=== PATIENT | female | born 1960 | race Caucasian/White ===

== ENCOUNTER 2024-09-16 11:28 | Outpatient (CLI) | payer OTHER, SELFPAY ==
--- NOTE | ~2024-09-16 | DEXA_ITS ---
Bone Density Report Name: DEVONTE JOSE Age: 63 Sex: Female Ethnicity: White Date of : 1960 Indication: postmenopausal; screening for osteoporosis; height loss; Referring Provider: VINOD PATE Study: Bone densitometry was performed. Exam Date: September 16, 2024 Accession number: [id number] Bone Density: Region BMD T-score Z-score Classification AP Spine(L1-L4) 1.020 -0.2 1.3 Normal Femoral Neck (Left) 0.784 -0.6 0.8 Normal Total Hip (Left) 0.928 -0.1 0.9 Normal Femoral Neck (Right) 0.825 -0.2 1.2 Normal Total Hip (Right) 0.958 0.1 1.2 Normal Total Hip Mean 0.943 0.0 1.1 Normal World Health Organization criteria for BMD impression classify patients as: Normal (T-score at or above -1.0), Osteopenia (T-score between -1.0 and -2.5), or Osteoporosis (T-score at or below -2.5). 10-year Fracture Risk: FRAX not reported because: All T-scores for Spine Total, Hip Total, Femoral Neck at or above -1.0 Clinical Information Provided by Patient: Has used the following medications: HRT (i.e. estrogen/hormone therapy), Vitamin D Patient maximum height was 67 Menopause Age: 59 Drinks caffeinated beverages Onset of menses at age 16 Number of children 0 Impression: The patient has normal bone mass. Discussion: BONE DENSITY IS ABOVE THE MINIMUM DESIRABLE LEVEL AT ALL SKELETAL SITES TESTED. This patient?s bone mineral density is above the minimum desirable level (T-score -1.0 or better) at all sites measured. The patient should follow a healthful lifestyle (good nutrition with adequate calcium and vitamin D, and appropriate weight-bearing exercise). Follow-Up: Consider repeating this study in 5 years or sooner if there is some new clinical indication. Reported by: SUMANTH on 09/16/2024 11:52:00 AM. Reviewed, dictated and finalized at location A.
== END 2024-09-16 11:29 | disposition home or self-care (01) ==
LOC: MICIMG 11:31
PROVIDERS: PCP Obstetrics & Gynecology Gynecology; Visit Provider Obstetrics & Gynecology Gynecology
DX: Z13.820 Encounter for screening for osteoporosis (principal); Z78.0 Asymptomatic menopausal state
CPT/HCPCS: 77080

== ENCOUNTER 2024-10-15 14:20 | Outpatient (CLI) | payer OTHER, SELFPAY ==
--- NOTE | ~2024-10-15 | US_ITS ---
EXAMINATION: US transvaginal INDICATION: Postmenopausal bleeding Comparison:No prior studies for comparison. TECHNIQUE: Multiple transabdominal and endovaginal sonographic images of the pelvis performed. FINDINGS: The uterus measures 5.1 x 2.7 x 3.7 cm. There is multiple small uterine fibroids largest measuring 11 mm on the right. The endometrial complex measures 4 mm. The ovaries are not visualized. There is no free fluid in the pelvis. There are no abnormal masses seen on either side. IMPRESSION: 1. Multiple small uterine fibroids, largest measuring 11 mm. Reviewed, dictated and finalized at location O.
== END 2024-10-15 14:21 | disposition home or self-care (01) ==
LOC: MICIMG 14:21
PROVIDERS: PCP Obstetrics & Gynecology Gynecology; Visit Provider Obstetrics & Gynecology Gynecology
DX: N95.0 Postmenopausal bleeding (principal); D25.9 Leiomyoma of uterus, unspecified
CPT/HCPCS: 76830

== ENCOUNTER 2024-11-08 03:21 | Day surgery (SDC) | payer OTHER, SELFPAY ==
--- OUTSIDE RECORDS SUMMARY | 2013-07-15 | XMS_ITS | Encounter Summary ---
Author Organization [facility] Healthcare Address [address] [place] [address] Care Team Providers Care Warp Tier Name Role Phone Unavailable Primary Care Provider Unavailabl e Reason for Visit * Diagnostic Imaging (Routine) - Closed Specialty Diagnoses / Procedures Referred By Contac t Referred To Contact Procedures Breast Imaging Screening Outside Reference Referral, Self Referral ID Status Reason Start Date Expiration Date Visits Re quested Visits Authorized [id number] Closed 09/20/2021 10/20/2022 1 1 Encounter Details Date Type Department Care Team (Late st Contact Info) Description 07/15/2013 Hospital Encounter [facility] [address] [place] [id number] Social History Tobacco Use Types Packs/Day Years Used Date Smoking Tobacco: Never Assessed Personal Safety Answer Date Recorded Getting School Help Needed Not on file 02/28 Comments Unknown Sex and Gender Information Value Date Recorded Sex Assigned at Not on file 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 Gender Identity Not on file Sexual Orientation Not on file documented as of this encounter Plan of Treatment Not on file documented as of this encounter Procedures Procedure Name Priority Date/Time Associated Diagnosis Comments BREAST IMAGING MG SCREENING OUTSIDE REFERENCE Routine 07/15/2013 12:00 AM CDT documented in this encounter Results * Breast Imaging Screening Outside Reference (07/15/2013 12:00 AM CDT) Impressions RAD_MAMMO_[facility] - 09/20/2021 12:40 PM CDT These images are for Reference purposes only and have not been reviewed by [facility]iology. There will be no report generated by a [facility] Radiologist. Narrative RAD_MAMMO_[facility] - 09/20/2021 12:40 PM CDT EXAMINATION: Images For Reference Purposes Only us Self Referral IMG MAMMO PROCEDURES Final Resul t RAD_MAMMO_[facility] documented in this encounter Visit Diagnoses Not on filedocumented in this encounter
--- OUTSIDE RECORDS SUMMARY | 2014-02-01 01:00 | XMS_ITS | Encounter Summary ---
Author Organization [facility] Healthcare Address [address] [place] [address] Care Team Providers Care Superintendent Drilling And Production Name Role Phone Unavailable Primary Care Provider Unavailabl e Reason for Visit * Diagnostic Imaging (Routine) - Closed Specialty Diagnoses / Procedures Referred By Contac t Referred To Contact Procedures Breast Imaging Diagnostic Outside Reference Referral, Self Referral ID Status Reason Start Date Expiration Date Visits Re quested Visits Authorized [id number] Closed 09/20/2021 10/20/2022 1 1 Encounter Details Date Type Department Care Team (Late st Contact Info) Description 02/01/2014 Hospital Encounter [facility] [address] [place] [phone] Social History Tobacco Use Types Packs/Day Years Used Date Smoking Tobacco: Never Assessed Personal Safety Answer Date Recorded Getting School Help Needed Not on file 02/28 Comments Unknown Sex and Gender Information Value Date Recorded Sex Assigned at Not on file 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 Gender Identity Not on file Sexual Orientation Not on file documented as of this encounter Plan of Treatment Not on file documented as of this encounter Procedures Procedure Name Priority Date/Time Associated Diagnosis Comments BREAST IMAGING MG DIAGNOSTIC OUTSIDE REFERENCE Routine 02/01/2014 12:00 AM PUMP SERVICER SUPERVISOR documented in this encounter Results * Breast Imaging Diagnostic Outside Reference (02/01/2014 12:00 AM PUMP SERVICER SUPERVISOR) Impressions RAD[facility]MAMMO_[facility] - 09/20/2021 12:39 PM CDT These images are for Reference purposes only and have not been reviewed by [facility]iology. There will be no report generated by a [facility] Radiologist. Narrative RAD_MAMMO_[facility] - 09/20/2021 12:39 PM CDT EXAMINATION: Images For Reference Purposes Only us Self Referral IMG MAMMO PROCEDURES Final Resul t RAD_MAMMO_[facility] documented in this encounter Visit Diagnoses Not on filedocumented in this encounter
--- OUTSIDE RECORDS SUMMARY | 2015-08-10 | XMS_ITS | Encounter Summary ---
Author Organization [facility] Healthcare Address [address] [place] [address] Care Team Providers Care Solutions Sales Executive Name Role Phone Unavailable Primary Care Provider Unavailabl e Reason for Visit * Diagnostic Imaging (Routine) - Closed Specialty Diagnoses / Procedures Referred By Contac t Referred To Contact Procedures Breast Imaging Screening Outside Reference Referral, Self Referral ID Status Reason Start Date Expiration Date Visits Re quested Visits Authorized [id number] Closed 09/20/2021 10/20/2022 1 1 Encounter Details Date Type Department Care Team (Late st Contact Info) Description 08/10/2015 Hospital Encounter [facility]) [address] [place] [phone] Social History Tobacco Use Types Packs/Day Years Used Date Smoking Tobacco: Never Assessed Personal Safety Answer Date Recorded Getting School Help Needed Not on file 02/28 Comments Unknown Sex and Gender Information Value Date Recorded Sex Assigned at Not on file 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 There will be no report generated by a [facility] Radiologist. Narrative RAD_MAMMO_[facility] - 09/20/2021 12:39 PM CDT EXAMINATION: Images For Reference Purposes Only us Self Referral IMG MAMMO PROCEDURES Final Resul t [facility]_MAMMO[facility] documented in this encounter Visit Diagnoses Not on filedocumented in this encounter
--- OUTSIDE RECORDS SUMMARY | 2020-07-04 | XMS_ITS | Encounter Summary ---
Author Organization [facility] Healthcare Address [address] [place] [address] Care Team Providers Care Intervention Analyst Name Role Phone Unavailable Primary Care Provider Unavailabl e Reason for Visit * Diagnostic Imaging (Routine) - Closed Specialty Diagnoses / Procedures Referred By Yon upton Referred To Contact Diagnoses Screening mammogram, encounter for Procedures Breast Imaging Screening Outside Reference Referral, Self Referral ID Status Reason Start Date Expiration Date Visits Re quested Visits Authorized [id number] Closed 09/20/2021 10/20/2022 1 1 Encounter Details Date Type Department Care Team (Late st Contact Info) Description 07/04/2020 Hospital Encounter [facility] [address] [place] [id number] Social History Tobacco Use Types Packs/Day Years Used Date Smoking Tobacco: Never Assessed Personal Safety Answer Date Recorded Getting School Help Needed Not on file 02/28 Comments Unknown Sex and Gender Information Value Date Recorded Sex Assigned at Not on file 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 Gender Identity Not on file Sexual Orientation Not on file documented as of this encounter Plan of Treatment Not on file documented as of this encounter Procedures Procedure Name Priority Date/Time Associated Diagnosis Comments BREAST IMAGING MG SCREENING OUTSIDE REFERENCE Schedule Routine, Read Routine (OP Routine) 07/04/2020 12:00 AM CDT Screening mammogram, encounter for documented in this encounter Results * Breast Imaging Screening Outside Reference (07/04/2020 12:00 AM CDT) Impressions RAD_MAMMO_[facility] - 09/20/2021 12:39 PM CDT These images are for Reference purposes only and have not been reviewed by [facility] Radiology. There will be no report generated by a [facility] Radiologist. Narrative RAD_MAMMO_[facility] - 09/20/2021 12:39 PM CDT EXAMINATION: Images For Reference Purposes Only us Self Referral IMG MAMMO PROCEDURES Final Resul t RAD_MAMMO_[facility] documented in this encounter Visit Diagnoses Not on filedocumented in this encounter
--- NOTE | 2024-11-02 09:12 | PC.NURSE ---
Report to the Outpatient Waiting Room, entrance under the green pavilion located off [facility], at time _9:00am on date ___[id number]____. Planned Procedure Time: ___11:00 am .? Time changes happen often and if your time is changed the preop area will call you the afternoon before. - You and your visitor will be asked to self-screen and do not enter if you have any COVID symptoms. Please call surgeon if you need to reschedule. - A mask is optional within the hospital at this time. Patients may have clear liquids (water, carbonated beverages, clear teas, apple juice) until 3 hours prior to surgery with a maximum of 20 ounces. - No food from midnight until time of surgery and no smoking, or chewing tobacco (or any form of nicotine). No chewing gum, candy or mints. DO NOT STOP ANY OF YOUR OTHER PRESCRIPTION MEDICATIONS PRIOR TO SURGERY EXCEPT THE FOLLOWING: cholesterol medication only. May take HRT if it is scheduled that am. Hold all vitamins and supplements for 3 days per anesthesiologist. Hold your Vitamin D. Last dose is on 11-04-2024 Please no make-up, nail nigerien, hairspray, perfume, deodorant, or body powder the day of surgery.? No jewelry (including any body piercings) or valuables the day of surgery, leave them at home.? Please take a shower or bath the night before, or the morning of, surgery with an antibacterial soap.? Wear comfortable, loose fitting clothing.? - The hospital will not accept responsibility for valuables.? - Please leave all valuables, including medications, at home the day of surgery. If you are going home after surgery, a licensed mobile lounge driver must drive you home.? - NO public transportation without another adult if you receive anesthesia. - We recommend that an adult stay with you for 24 hours following discharge. - We also recommend that you do not drive, make important decision, drink alcoholic beverages, or take any drugs that were not prescribed by your health care provider for at least 24 hours after your discharge time. Follow any additional instructions given to you from your surgeon. Telephone instructions given to Patient/Geena (Lee Ann) and asked if any additional questions and then verbalized understanding. Patient advised to call surgeon office or pre surgery nurse liaison [phone] if any additional questions.
[2024-11-02 09:18] VITALS: BMI 23.4
--- OUTSIDE RECORDS SUMMARY | 2024-11-08 03:23 | XMS_ITS | Clinical Summary ---
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 Gender Identity Not on file Sexual Orientation Not on file Plan of Treatment Health Maintenance Due Date Last Done Comments Cervical Cancer Screening 1960 Colon Cancer Screening-Colonoscopy 1960 Depression Screening 1960 Hepatitis C Screening 1962 Hepatitis B Screening 1980 Regular Well Visit/Exam 18-64 1980 Zoster Vaccine (1 of 2) 2012 DTaP/Tdap/Td Vaccine (2 - Td or Tdap) 02/24/2017 02/24/2007 Covid-19 Vaccine (2024-2 6 season) 2024 01/15/2021, 04/28/2020 Influenza Vaccine (#1) 2024 , 11/24/2008 Breast Cancer Screening-Mammogram 12/11/2024 12/12/2023, 10/14/2022, 09/14/2021 Pneumococcal vaccine <65 Aged Out No longer eligible based on patient's age to complete this topic Procedures Procedure Name Priority Date/Time Associated Diagnosis Comments SCREENING MAMMOGRAM BILATERAL W JAY Schedule Routine, Read Routine (OP Routine) 12/12/2023 9:15 AM CDT Screening mammogram, encounter for from Last 3 Months or Most Recently Relevant to Health Maintenance Results * Screening Mammogram Bilateral W Jay (12/12/2023 9:15 AM CDT) Anatomical Region Laterality Modality Breast Bilateral Mammography Narrative 12/15/2023 3:47 PM CDT Mammogram Technique: Bilateral Digital Breast Tomosynthesis, Bilateral C-view 2D Screening mammogram. Views obtained: bilateral craniocaudal and bilateral mediolateral oblique. Computer Aided Detection was performed. Mammogram Findings: The present examination has been compared to prior imaging studies performed at [facility] on 09/14/2021 and 10/14/2022, and at [place], [place] on 07/04/2020. There are scattered areas of fibroglandular density. There is no suspicious abnormality in either breast. Impression: There is no mammographic evidence of malignancy. Annual screening mammography is recommended. OVERALL FINAL ASSESSMENT: BI-RADS CATEGORY 1: Negative. Procedure Note Grace Mcginnis MD - 12/15/2023 Mammogram Technique: Bilateral Digital Breast Tomosynthesis, Bilateral C-view 2D Screening mammogram. Views obtained: bilateral craniocaudal and bilateral mediolateral oblique. Computer Aided Detection was performed. Mammogram Findings: The present examination has been compared to prior imaging studies performed at [facility] on 09/14/2021 and 10/14/2022, and at [place], [place] on 07/04/2020. There are scattered areas of fibroglandular density. There is no suspicious abnormality in either breast. Impression: There is no mammographic evidence of malignancy. Annual screening mammography is recommended. OVERALL FINAL ASSESSMENT: BI-RADS CATEGORY 1: Negative. us Self Screening Mammogram IMG MAMMO PROCEDURES Fi nal Result from Last 3 Months or Most Recently Relevant to Health Maintenance Insurance [employer] Care Teams Senior Risk Analyst Relationship Specialty Start Date End Date Elza Samaniego MD [address] [address] PCP - General Gynecology 09/14/21
--- OUTSIDE RECORDS SUMMARY | 2024-11-08 03:23 | XMS_ITS | Clinical Summary ---
Author Organization [facility] Address [address] [place] [address] Care Team Providers Care Machine Operator Name Role Phone Phu Enriquez MD Primary Care Provider [phone] Allergies No known active allergies Medications meloxicam (MOBIC) 15 mg Oral tablet Take 1 Tab by mouth daily. 30 Tab 3 11/19/2010 Active cyclobenzaprine (FLEXERIL) 10 mg Oral tablet Take 1 Tab by mouth nightly as needed for Spasm. 30 Tab 0 02/19/2011 Active meloxicam (MOBIC) 15 mg Oral tablet Take 1 Tab by mouth daily. 30 Tab 3 02/19/2011 Active Active Problems Patient Care Coordination No te Formatting of this note migh t be different from the original. Prev visit done 11/19/10 Problem Noted Date Diagnosed Date Tendonitis of elbow, right 11/19/2010 Immunizations Immunization Administration Dates Next Due (ADACEL/BOOSTRIX)(10 YR UP) TDAP VACCINE, 0.5ML, IM 02/24/2007 Influenza Seasonal Unspecified Formulation IM Family History Medical History Relation Name Comments Cancer Mother ovarian Relation Name Status Comments Brother 1 Alive Brother 2 Alive Father (Age 44) Mother (Age 47) Sister Alive Social History Tobacco Use Types Packs/Day Years Used Date Smoking Tobacco: Never Smokeless Tobacco: Never Alcohol Use Standard Drinks/Week Comments Yes 0 (1 standard drink = 0.6 oz pur e alcohol) occasionally Comments Unknown Sex and Gender Information Value Date Recorded Sex Assigned at Not on file Legal Sex Female 6:04 AM SEASONAL SALES ASSOCIATE Gender Identity Not on file Sexual Orientation Not on file Last Filed Vital Signs Vital Sign Reading Time Taken Comments Blood Pressure 120/90 02/19/2011 2:32 PM SEASONAL SALES ASSOCIATE Pulse - - Temperature 36.7 C (98.1 F) 11/19/2010 1:10 PM CDT Respiratory Rate - - Oxygen Saturation - - Inhaled Oxygen Concentration - - Weight 74.8 kg (165 lb) 02/19/2011 2:32 PM SEASONAL SALES ASSOCIATE Height 167.6 cm (5' 6) 02/19/2011 2:32 PM SEASONAL SALES ASSOCIATE Body Mass Index 26.63 02/19/2011 2:32 PM SEASONAL SALES ASSOCIATE Plan of Treatment Health Maintenance Due Date Last Done Comments HPV/Cotest (21-29) 11/05/1983 CERVICAL CANCER SCREENING 1992 HPV/Cotest (30-65) 1992 PAP SMEAR 1992 BREAST CANCER SCREENING 2002 COLORECTAL SCREENING 11/05/2007 Colorectal Cancer Screening 11/05/2007 FIT-DNA Q 3 years 11/05/2007 FIT/FOBT Q 1 year 11/05/2007 Flex Sig/CT Colonography Q 5 years 11/05/2007 ZOSTER VACCINE (1 of 2) 2012 DTAP/TDAP/TD VACCINES (2 - Td or Tdap) 02/24/2017 Preventative Visit- Commercial 02/25/2024 11/19/2010 INFLUENZA VACCINE (#1) 2024 11/24/2008 RSV VACCINE (60+ or ) (1 - 1-dose 75+ series) 2037 Insurance OPEN ACCESS HMO Care Teams Machine Operator Relationship Specialty Start Date End Date Phu Enriquez MD PCP - General Internal Medicine 11/12/10
--- OUTSIDE RECORDS SUMMARY | 2024-11-08 03:23 | XMS_ITS | Clinical Summary ---
Author Organization [facility] Address [address] [place] [address] Care Team Providers Care Water Supervisor Name Role Phone Agnieszka Buckner MD Primary Care Provider + Allergies No known active allergies Medications vitamin D2, ergocalciferol , (DRISDOL) 1.25 mg capsule 5 Active progesterone (PROMETRIUM) 100 MG capsuleIndicat ions:Hot flashes due to menopause Take 1 capsule (100 mg total) by mouth daily. 90 capsule 1 5 025 Active estradiol (ESTRACE) 0.1 MG/GM vaginal creamIndicatio ns:Genitourina ry syndrome of menopause Place 1 g vaginally see administration instructions. Place 1 gm of cream intravaginally nightly for 2 weeks and rub in. Use 1 gm twice weekly therafter. 127.5 g 3 5 026 Active rosuvastatin (CRESTOR) 10 MG tabletIndicati ons:Elevated lipoprotein(a) Take 1 tablet (10 mg total) by mouth nightly at bedtime. 90 tablet 1 5 025 Active estradiol (CLIMARA) 0.05 MG/24HRIndicat ions:Hot flashes due to menopause Place 1 patch (0.05 mg total) onto the skin once a week. 12 patch 1 5 025 Active Active Problems Problem Noted Date Diagnosed Date Need for taqdnelduv-ugtjcir-ogmzuqfgs (Tdap) vac cine 08/31/2024 Assessment & Plan (08/31/2024 6:31 PM CDT): Patient due for Tdap booster as unsure of last booster. She was given [facility] VIS to review. Agatston CAC score, <100 08/23/2024 Overview (08/23/2024): Results: Left main: 0 LAD: 0 Circumflex: 0 Right coronary: 0 Total Score: 0 Assessment & Plan (08/31/2024 6:31 PM CDT): See under mixed hyperlipidemia and elevated lipoprotein a Hot flashes due to menopause 07/12/2024 Overview (08/31/2024): 08/31/2024: She reports she started using estradiol patch once weekly and has noticed improvement in her symptoms and sleep. Assessment & Plan (08/31/2024 6:35 PM CDT): Continue estradiol 0.05 mg/day patch weekly. Discussed with patient that dose can be adjusted based on how she is feeling and responding to therapy. Patient is content at this current dose so we will continue at this current dose. Assessment & Plan (07/12/2024 6:25 PM CDT): In the setting of patient's menopausal hot flashes, I recommend we start HRT. Will start estradiol 0.5 mg daily and progesterone 100 mg daily as patient still has uterus. She is counseled regarding these medications. Genitourinary syndrome of menopause 07/12/2024 Overview (08/31/2024): 08/31/2024: She reports vaginal dryness has improved since starting topical estrogen. Assessment & Plan (08/31/2024 6:34 PM CDT): Discussed with patient that I expect peak improvement around 3 months after initiation of therapy. Recommend patient continue topical vaginal estrogen 1 g twice weekly. Assessment & Plan (07/12/2024 6:26 PM CDT): Discussed with patient and she is agreeable to starting topical vaginal estrogen. Will start vaginal estrogen 1 g nightly for 2 weeks and then 1 g 2 days weekly thereafter. She is counseled on regarding this medication. Encounter for screening mamm ogram for malignant neoplasm of breast 06/29/2024 Overview (06/29/2024): Initial visit 06/29/2024: Mammogram 12/12/2023 returned showing BI-RADS 1. Patient will need repeat mammogram in November 2024. Family history of premature CAD 06/29/2024 Overview (06/29/2024): Initial visit 06/29/2024: Patient's brother had heart attack in early 50s. Patient also has heart disease history and other family members. Assessment & Plan (06/29/2024 8:56 AM CDT): Recommend that patient complete coronary artery calcium score and have ordered lipoprotein a in addition to lipid panel. Postmenopausal 06/29/2024 Overview (06/29/2024): Initial visit 06/29/2024: She reports she stopped having menstrual periods at age 60. She reports she has upcoming DEXA scan in August 2024. Constipation, unspecified constipation type 07/2024 Overview (06/29/2024): Initial visit 06/29/2024: She reports that she is always struggled with constipation. Assessment & Plan (07/12/2024 6:24 PM CDT): Suspect patient's constipation may be related to her intermittent abdominal pain. Offered patient medication such as lubiprostone however she would like to hold off at this time. Will continue with xlii-fdt-zolvdxj therapies such as magnesium citrate. Assessment & Plan (06/29/2024 8:57 AM CDT): Labs ordered. Will have patient return for discussion of constipation. Family history of colon cancer 06/29/2024 Overview (08/31/2024): Initial visit 06/29/2024: She reports her brother has metastatic colon cancer and colon cancer was diagnosed in early 50s. Assessment & Plan (08/31/2024 6:33 PM CDT): Discussed colon cancer screening with patient. She was recommended after her last colonoscopy in 2022 to return in 5 years. If she would like another opinion, we are happy to place referral for her to general surgeon or GI if she would like to discuss potentially having colonoscopies done more frequently such as every 3 years given her significant family history of metastatic colon cancer diagnosed in her brother in his early 50s. Elevated lipoprotein(a) 06/29/2024 Overview (08/31/2024): Component Ref Range & Units 06/29/24 0905 LIPOPROTEIN (A) nmol/L 197 High Component Ref Range & Units 06/29/24 0905 CHOLESTEROL <200 MG/DL 228 High TRIGLYCERIDES <150 MG/DL 75 HDL >40 MG/DL 58 LDL-C <100 MG/DL 155 High VLDL CALCULATION 5 - 28 MG/DL 15 CHOL/HDL RATIO 0.0 - 4.0 3.9 LDL/HDL 0.41 - 2.13 2.7 High NON HDL CHOLESTEROL <140 MG/DL 170 High Results: Left main: 0 LAD: 0 Circumflex: 0 Right coronary: 0 Total Score: 0 Comments: There is no mediastinal adenopathy, and there are no pulmonary nodules in the visualized portions of the chest. 08/31/2024: She reports she has not start taking rosuvastatin yet Assessment & Plan (08/31/2024 6:30 PM CDT): Again, discussed with patient that in the setting of her elevated lipoprotein a and elevated cholesterol, I recommend we start cholesterol-lowering therapy. She is agreeable. Will start rosuvastatin 10 mg once daily. She is counseled on side effects of medication. Plan to repeat fasting lipid panel in 4 to 6 weeks after initiating therapy. Assessment & Plan (07/12/2024 6:23 PM CDT): Discussed with patient that in the setting of her elevated lipoprotein a and elevated cholesterol, I recommend we start cholesterol-lowering therapy. She is agreeable. Will start rosuvastatin 10 mg once daily. She is counseled on side effects of medication. Plan to repeat fasting lipid panel in 4 to 6 weeks. Lack of immunity to hepatiti s B virus demonstrated by serologic test 06/29/2024 Overview (07/09/2024): Component Ref Range & Units 06/29/24 0905 HEP B SURFACE AB >9.9 MIU/ML <3.1 Low Comment: INDIVIDUAL IS CONSIDERED NOT IMMUNE TO HBV INFECTION. Assessment & Plan (08/31/2024 6:32 PM CDT): Has received 2 doses of hepatitis B vaccine. Will be due for third and final dose towards the end of December 2024. Assessment & Plan (07/12/2024 6:22 PM CDT): Recommend 3 dose hepatitis B vaccine series. Patient was given CDC VIS and endorsed no questions. She was counseled on vaccine side effects. Need for prophylactic vaccination against hepati tis B virus 06/29/2024 Overview (07/09/2024): Component Ref Range & Units 06/29/24 0905 HEP B SURFACE AB >9.9 MIU/ML <3.1 Low Comment: INDIVIDUAL IS CONSIDERED NOT IMMUNE TO HBV INFECTION. Assessment & Plan (08/31/2024 6:32 PM CDT): Due for second dose of hepatitis B vaccine. Patient is agreeable. She was given CDC VIS. Will be due for third dose of hepatitis B vaccine towards the end of December 2024. Assessment & Plan (07/12/2024 6:22 PM CDT): Recommend 3 dose hepatitis B vaccine series. Patient was given CDC VIS and endorsed no questions. She was counseled on vaccine side effects. Mixed hyperlipidemia 06/29/2024 Overview (08/31/2024): Component Ref Range & Units 06/29/24 0905 CHOLESTEROL <200 MG/DL 228 High TRIGLYCERIDES <150 MG/DL 75 HDL >40 MG/DL 58 LDL-C <100 MG/DL 155 High VLDL CALCULATION 5 - 28 MG/DL 15 CHOL/HDL RATIO 0.0 - 4.0 3.9 LDL/HDL 0.41 - 2.13 2.7 High NON HDL CHOLESTEROL <140 MG/DL 170 High Resulting Agency [facility] 08/31/2024: She reports she has not start taking rosuvastatin yet Assessment & Plan (08/31/2024 6:31 PM CDT): Again, discussed with patient that in the setting of her elevated lipoprotein a and elevated cholesterol, I recommend we start cholesterol-lowering therapy. She is agreeable. Will start rosuvastatin 10 mg once daily. She is counseled on side effects of medication. Plan to repeat fasting lipid panel in 4 to 6 weeks after initiating therapy. Resolved Problems Problem Noted Date Diagnosed Date Resolved Date Left lower quadrant abdominal pain 07/12/2024 08/31/2024 Overview (08/31/2024): Initial visit 06/29/2024: She reports she has had recent left flank pain episode of burning with urination. She denies current burning with urination. She denies fever and chills. 07/12/2024: Patient reports pain is more so in lower abdomen on the left side. She reports that is intermittent. She denies any aggravating or alleviating factors. She reports she was diagnosed with diverticulosis on colonoscopy in the past. 08/31/2024: She reports pain resolved within a few weeks after last appointment. Assessment & Plan (07/12/2024 6:27 PM CDT): Previous urinalysis not concerning for infection. Physical exam was completed and no abnormalities noted on abdominal exam. Discussed with patient that we can continue to monitor abdominal pain and if there is any concern, we can order ultrasound of the abdomen to evaluate further. Colon cancer screening 06/29/202407/12 Overview (06/29/2024): Initial visit 06/29/2024: Has had 3 colonoscopies in the past. Colonoscopy completed 06/25/2022 at [facility] in [place], [place]. Recommended repeat colonoscopy in 5 years as 2 polyps were removed. Assessment & Plan (06/29/2024 6:53 AM CDT): Requesting records to reconcile care gap. Vitamin D deficiency 06/29/2024 Overview (07/09/2024): Initial visit 06/29/2024: Patient is currently taking vitamin D 2 1.25 mg capsule twice weekly. She reports she last took dose on Friday. Component Ref Range & Units 06/29/24 0905 VITAMIN D 25 HYDROXY TOTAL S/P/B 30 - 100 NG/ML 75.6 Assessment & Plan (06/29/2024 8:57 AM CDT): Vitamin D testing ordered. Cervical cancer screening 06/29/2024 Overview (07/12/2024): Cervical cancer screening completed 09/16/2023 with Elza Samaniego MD which returned negative for intraepithelial lesion or malignancy and atrophy, will need to be repeated in 3 years Assessment & Plan (06/29/2024 8:58 AM CDT): Will request records. Elevated blood pressure read ing in office without diagnosis of hypertension 06/29/20242024 Overview (06/29/2024): Initial visit 06/29/2024: Patient denies previous diagnosis of high blood pressure. She reports that her recent employee health event, her blood pressure was a little bit elevated however they had her walking around the area. Assessment & Plan (06/29/2024 8:56 AM CDT): Blood pressure is elevated in office today. Discussed with patient that I recommend she take blood pressure measurements at home and bring in log and cuff at next visit. Need for prophylactic vaccin ation against Streptococcus pneumoniae (pneumococcus) 06/29/2024 07/12/2024 Overview (07/12/2024): 06/29/2024: Received Prevnar 20 Assessment & Plan (06/29/2024 8:59 AM CDT): Recommend Prevnar 20 pneumonia vaccine. Patient counseled on side effects. She was given CDC VIS. Tendonitis of elbow, right 11/19/2010 0 06/29/2024 Encounters Date Type Department Care Team Description 08/31/2024 4:20 PM CDT Office Visit [facility] [place] [address] [place] [address] Ling Davidson DO Lipids (6 week follow up. /) 08/31/2024 Travel 08/09/2024 [facility] [place] [address] [place] [address] Ling Davidson, Appointment on 08/23 from Last 3 Months Immunizations Immunization Administration Dates Next Due Hepatitis B (Recombivax Hb 10 Mcg) 08/31/2024, Influenza (Generic) 11/24/2008 Influenza Adult (Generic) 12/07/2019 Pneumococcal (Prevnar 20) 06/29/2024 Tdap (Adacel) 08/31/2024 Tdap (Generic) 02/24/2007 Family History Medical History Relation Comments Cancer Brother Colon Cancer Brother Heart Attack Brother Heart Disease Brother Alcohol/Drug Father Heart Attack Father Cancer Mother Ovarian Cancer Mother No Known Problems Sister Relation Status Comments Brother Alive Father Maternal Grandfather Maternal Grandmother Mother Paternal Grandfather Paternal Grandmother Sister Alive Social History Tobacco Use Types Packs/Day Years Used Date Smoking Tobacco: Never Smokeless Tobacco: Never Tobacco Cessation:Counseling Given: No Alcohol Use Standard Drinks/Week Comments Yes 1 (1 standard drink = 0.6 oz pur e alcohol) Karen so often PHQ-2 Answer Date Recorded Patient Health Questionnaire-2 Score 0 06/29/2024 Comments No Sex and Gender Information Value Date Recorded Sex Assigned at Female 06/28/2024 7:38 AM CDT Legal Sex Female 12:27 PM CDT Gender Identity Female 06/28/2024 7:38 AM CDT Sexual Orientation Lesbian 06/28/2024 7: 38 AM CDT Last Filed Vital Signs Vital Sign Reading Time Taken Comments Blood Pressure 124/70 08/31/2024 4:26 PM CDT Pulse 59 08/31/2024 4:26 PM CDT Temperature 36.6 C (97.9 F) 08/31/2024 4:26 PM CDT Respiratory Rate 16 08/31/2024 4:26 PM CDT Oxygen Saturation 98% 08/31/2024 4:26 PM CDT Inhaled Oxygen Concentration - - Weight 68.9 kg (152 lb) 08/31/2024 4:26 PM CDT Height 170.2 cm (5' 7) 08/31/2024 4:26 PM CDT Body Mass Index 23.81 08/31/2024 4:26 PM CDT Plan of Treatment Upcoming Encounters Date Type Department Care Team (Late st Contact Info) Description 11/30/2024 7:30 AM CDT Office Visit [facility] Family [facility] - [place] [address] [place] [id number] Agnieszka Buckner MD [address] [place], [place] [id number] Health Maintenance Due Date Last Done Comments Annual Physical 1963 Cervical Cancer Screening Pa p with HPV Testing (Age 30 to 64) Every 5 Years 1992 COVID-19 Vaccine (3 - 2024-2 6 season) 2024 01/15/2021, 04/28/2020 Mammogram Screening 12/11/2024 12/12/2023, 10/14/2022, 09/14/2021 Zoster Vaccines (1 of 2) 08/31/2025 Pos tponed from 2012 (Patient Refused) Cervical Cancer Screening Pa p Smear (Age 30 to 64) Every 3 Years 09/15/2026 09/16/2023 Cervical Cancer Screening with HPV 09/15/2026 Colorectal Cancer Screening Colonoscopy (10 Years) 07/16/2027 07/15/2022 DTaP, Tdap and Td Vaccines ( 3 - Td or Tdap) 08/31/2034 08/31/2024, 02/24/2007 RSV Immunization or 60+ Years (1 - 1-dose 75+ series) 2037 Hepatitis C Completed 06/29/2024 PHQ-2 (Physician Wainwright) Completed 06/29/2024 Pneumococcal Vaccine: 50+ Years Completed 06/29/2024 Meningococcal B Vaccine Aged Out No l onger eligible based on patient's age to complete this topic Meningococcal Vaccine Aged Out No lise carolyne eligible based on patient's age to complete this topic RSV Immunizations Under 20 Months Aged Out No longer eligible b ased on patient's age to complete this topic Procedures Procedure Name Priority Date/Time Associated Diagnosis Comments HEPATITIS C ANTIBODY Routine 06/29/2024 9:05 AM CDT Encounter for hepatitis C screening test for low risk patient OUTSIDE CYTOPATH CERV/VAG INTERPRET (PAP) (SCAN ORDER) 09/16/2023 COLONOSCOPY GENERIC (SCAN ORDER) Routine 07/15/2022 from Last 3 Months or Most Recently Relevant to Health Maintenance Results * HEPATITIS C ANTIBODY (06/29/2024 9:05 AM CDT) HEPATITIS C AB NON-REACTI VE NON-REACT CARRI 06/29/2024 6:44 PM CDT [facility] Comment: ANTIBODIES TO HCV NOT DETECTED. DOES NOT EXCLUDE THE POSSIBILITY OF EXPOSURE TO HCV. 06/29/2024 9:05 AM CDT Ling Davidson DO LABORATORY Final Result [facility] [address] [place] [address], [place] [phone] [id number] * PAP SMEAR (SCAN ORDER) (09/16/2023) 09/16/2023 [facility] Scanned SCANNING Final Resu lt * COLONOSCOPY (07/15/2022) [facility] Scanned SCANNING Final Resu lt [facility] from Last 3 Months or Most Recently Relevant to Health Maintenance Insurance [employer] Care Teams Water Supervisor Relationship Specialty Start Date End Date Agnieszka Buckner MD [address] [place] [id number] PCP - General FAMILY PRACTICE 10/18/24
--- OUTSIDE RECORDS SUMMARY | 2024-11-08 03:23 | XMS_ITS | Encounter Summary ---
Author Organization [facility] Address [address] [place] [address] Care Team Providers Care Certified Flight Instructor Name Role Phone Ling Davidson DO Primary Care Provider [phone] Agnieszka Buckner MD Primary Care Provider + Encounter Details Date Type Department Care Team (Latest Contact Info) Description 08/09/2024 MyChart Message Enc [facility] [place] [address] [place] [address] Ling Davidson DO [address] [place] [address] Appointment on 08/23 Social History Tobacco Use Types Packs/Day Years Used Date Smoking Tobacco: Never Smokeless Tobacco: Never Alcohol Use Standard Drinks/Week Comments Yes 1 [...] Orientation Lesbian 06/28/2024 7: 38 AM CDT documented as of this encounter Plan of Treatment Upcoming Encounters Date Type Department Care Team (Late st Contact Info) Description 11/30/2024 7:30 AM CDT Office Visit [facility] Family Medicine - [place] [address] [place] [address] Agnieszka Buckner MD [address] [place] [address] documented as of this encounter Visit Diagnoses Not on filedocumented in this encounter Care Teams Certified Flight Instructor Relationship Specialty Start Date End Date Ling Davidson DO [address] [place] [address] PCP - General FAMILY PRACTICE 06/15/24 10/17/24 Agnieszka Buckner MD [address] [place] [address] PCP - General FAMILY PRACTICE 10/18/24 documented as of this encounter
--- OUTSIDE RECORDS SUMMARY | 2024-11-08 03:24 | XMS_ITS | Encounter Summary ---
Author Organization [facility] Address [address] [place] [address] Care Team Providers Care Enrobing Machine Corder Name Role Phone Ling Davidson DO Primary Care Provider [phone] Agnieszka Buckner MD Primary Care Provider + Encounter Details Date Type Department Care Team (Latest Contact Info) Description 07/22/2024 MyChart Message Enc [facility] [place] [address] [place] [address] Ling Davidson DO [address] [place] [address] estradiol 0.5 MG tablet to the estradol patch Social History Tobacco Use Types Packs/Day Years [...] Description 11/30/2024 7:30 AM CDT Office Visit [facility] - [place] [address] [place], [place] [phone] Agnieszka Buckner MD [address] [place], [place] [address] documented as of this encounter Visit Diagnoses Not on filedocumented in this encounter Care Teams Enrobing Machine Corder Relationship Specialty Start Date End Date Ling Davidson DO [address] [place] [address] PCP - General FAMILY PRACTICE 06/15/24 10/17/24 Agnieszka Buckner MD [address] [place] [address] PCP - General FAMILY PRACTICE 10/18/24 documented as of this encounter
--- OUTSIDE RECORDS SUMMARY | 2024-11-08 03:24 | XMS_ITS | Encounter Summary ---
Author Organization [facility] Address [address] [place] [address] Care Team Providers Care Manager Product Support Name Role Phone Ling Davidson DO Primary Care Provider [phone] Agnieszka Buckner MD Primary Care Provider + Encounter Details Date Type Department Care Team (Latest Contact Info) Description 08/05/2024 MyChart Message Enc [facility] [place] [address] [place] [address] Ling Davidson DO [address] [place] [address] Estradiol patch verses the pill Social History Tobacco Use Types Packs/Day Years [...] Description 11/30/2024 7:30 AM CDT Office Visit [facility] Family Medicine [place] [address] [place] [address] Agnieszka Buckner MD [address] [place] [address] documented as of this encounter Visit Diagnoses Not on filedocumented in this encounter Care Teams Manager Product Support Relationship Specialty Start Date End Date Ling Davidson DO [address] [place] [address] PCP - General FAMILY PRACTICE 06/15/24 10/17/24 Agnieszka Buckner MD [address] [place] [address] PCP - General FAMILY PRACTICE 10/18/24 documented as of this encounter
--- OUTSIDE RECORDS SUMMARY | 2024-11-08 03:24 | XMS_ITS | Clinical Summary ---
Author Organization [facility] Address [address] [facility] [address] [place] [address] Phone Care Team Providers Care Card Setter Name Role Phone Elza Samaniego MD Unavailable [phone] Elza Samaniego MD Primary Care Provider Param Lin MD Unavailable [phone] Allergies No known active allergies Medications Cholecalciferol (Vitamin D3) 1.25 MG (02768 UT) Tablet Take by mouth. TWICE A WEEK Active Active Problems No known active problems Family History Medical History Relation Name Comments Cancer Brother Cancer Mother ovarian Relation Name Status Comments Brother Mother Social History Tobacco Use Types Packs/Day Years Used Date Smoking Tobacco: Never Smokeless Tobacco: Never Tobacco Cessation:Counseling Given: Not Answered Alcohol Use Standard Drinks/Week Comments Yes 0 (1 standard drink = 0.6 oz pur e alcohol) social Comments Unknown Sex and Gender Information Value Date Recorded Sex Assigned at Not on file Legal Sex Female 12:40 AM CDT Gender Identity Not on file Sexual Orientation Not on file Last Filed Vital Signs Vital Sign Reading Time Taken Comments Blood Pressure 110/56 07/15/2022 12:03 PM CDT Pulse 63 07/15/2022 12:03 PM CDT Temperature 36 C (96.8 F) 07/15/2022 12:03 PM CDT Respiratory Rate 14 07/15/2022 12:03 PM CDT Oxygen Saturation 100% 07/15/2022 12:03 PM CDT Inhaled Oxygen Concentration - - Weight 68 kg (150 lb) 06/26/2022 1:00 PM CDT Height 170.2 cm (5' 7) 06/26/2022 1:00 PM CDT Body Mass Index 23.49 06/26/2022 1:00 PM CDT Plan of Treatment Health Maintenance Due Date Last Done Comments Hepatitis C Virus (HCV) Screening 1962 Pap Smear 11/05/1983 Cervical Cancer Screening (CCS) 1992 HPV/Cotest 1992 Cologuard 11/05/2007 Immunochemical Fecal Occult Blood 11/05/2007 Pneumococcal Immunization (5 0+ years) (1 of 1 - PCV) 2012 Zoster Immunization (1 of 2) 2012 Influenza Immunization (#1) 10/25/202411/24, 11/24/2008 SARS-COV-2 Immunization ( season) 2024 01/15/2021, 04/28/2020 Colonoscopy 07/16/2027 07/15/2022, 12/02/2016 Colorectal Cancer Screening 07/16/2027 Respiratory Syncytial Virus (RSV) Immunization (Adult) (1 - 1-dose 75+ series) 2037 DTaP/Tdap/Td Immunization Discontinued 02/24/2007 TdaP Immunization Completed 02/24/2007 Hepatitis B Immunization Aged Out No longer eligible based on patient's age to complete this topic Human Papillomavirus (HPV) Immunization Aged Out No longer eligible based on patient's age to complete this topic Meningococcal Immunization (ACWY) Aged Out No longer eligible based on patient's age to complete this topic Rotavirus Immunization Aged Out No lo nger eligible based on patient's age to complete this topic Insurance [employer] Care Teams Card Setter Relationship Specialty Start Date End Date Elza Samaniego MD [address] [place] [address] PCP - General Obstetrics & Gynecology 12/02/16 Elza Samaniego MD [address] [place] [address] Obstetrics & Gynecology 06/13/16 Param Lin MD [address] [place] [address] General Surgery 01/13/17
--- NOTE | 2024-11-08 07:19 | WPDHPUPDATE1 ---
History and Physical Update Update Date/Time: 11/08/24 07:19 History and Physical has been reviewed, including an updated exam of the patient. There are NO changes in the patient's condition. Risks, benefits, and alternatives have been discussed and questions answered. Patient agrees to proceed with procedure.
--- NOTE | 2024-11-08 07:19 | PM.HPGS ---
History of Present Illness History of Present Illness Consent: Risks, benefits, and alternatives have been discussed and questions answered. Patient agrees to proceed with procedure. Chief complaint: post menopausal bleeding Narrative: Geena Woods is a 64 year old female with postmenopausal bleeding and a slightly thickened endometrium. It was recommended to undergo D&C hysteroscopy. Risks of infection, bleeding, perforation, and possible pathology are discussed. The patient voices understanding and agrees to proceed. Review of Systems Review of Systems: not repeated day of surgery; patient states no changes in status COUNTS INCLUDE 234 BEDS AT THE [facility] Past Medical History Medical History (Updated 11/08/24 @ 07:21 by Elza Samaniego MD) Elevated cholesterol Social History Social History Smoking status: Never smoker Second hand tobacco smoke exposure: Yes (as a child.) Alcohol intake: current Drinks per week: 1 Substance use: never Substance use type: does not use Living arrangements: with family Spiritual care concerns: No Meds Home Medications and Allergies Home Medications ?Medication ?Instructions ?Recorded ?Confirmed ?Type ergocalciferol (vitamin D2) 1,250 50,000 unit PO MONTHLY 11/02/24 11/03/24 History mcg (50,000 unit) capsule estradiol 0.01% (0.1 mg/gram) 1 appful vaginal WEEKLY 11/02/24 11/03/24 History vaginal cream estradiol 0.05 mg/24 hr weekly 1 patch transdermal WEEKLY 11/02/24 11/03/24 History transdermal patch estradiol 0.5 mg tablet 0.5 mg PO DAILY 11/02/24 11/03/24 History Held on 11/02/24. Instructions: Patient no longer taking progesterone micronized 100 mg 100 mg PO QPM 11/02/24 11/03/24 History capsule rosuvastatin 10 mg tablet 10 mg PO DAILY 11/02/24 11/03/24 History Allergies Allergy/AdvReac Type Severity Reaction Status Date / Time No Known Allergies Allergy Verified 11/02/24 09:04 Exam Const: General: healthy appearing and alert Orientation/consciousness: patient oriented x3 Resp: Effort & Inspection: normal respiratory effort : External Female Exam: normal external appearance Speculum Exam - Vagina: normal appearance of the vagina and normal vaginal discharge Speculum Exam - Cervix: normal appearance of the cervix Bimanual exam- vagina & uterus: uterine size normal and consistency normal Bimanual Exam- Adnexa, other: normal adnexae and No adnexal tenderness Neuro: General: patient oriented x3 Assessment and Plan Assessment and plan (1) Post-menopausal bleeding: Code(s): N95.0 - Postmenopausal bleeding Status: Acute Assessment and Plan: Plan to proceed with D&C hysteroscopy
[2024-11-08 09:30] VITALS: BP 111/56; PULSE 68; RESP 16; TEMP 36.4; O2SAT 100
[2024-11-08] MEDS: ACETAMINOPHEN 500 MG TABLET 1000 MG PO (09:46)
--- NOTE | 2024-11-08 09:55 | P.PNAN_ITS ---
Anes - Initial Pre Proc Eval Procedure: Operation Date: 11/08/24 11:00 Proposed Procedures p Hysteroscopy Dilation and Curettage - Elza Samaniego MD Date/Time: 11/08/24 09:55 Surgeon: Elza Samaniego MD Pre Op Diagnosis: post menopausal bleeding Patient Data Age: 64 Gender: F Height: 1.7 m Weight: 68 kg Allergies Allergy/AdvReac Type Severity Reaction Status Date / Time No Known Allergies Allergy Verified 11/08/24 09:47 Home Medications ?Medication ?Instructions ?Recorded ?Confirmed ?Type ergocalciferol (vitamin D2) 1,250 50,000 unit PO MONTH LY 11/02/24 11/03/24 History mcg (50,000 unit) capsule estradiol 0.01% (0.1 mg/gram) 1 appful vaginal WEEKLY 11/02/24 11/03/24 History vaginal cream estradiol 0.05 mg/24 hr weekly 1 patch transdermal WEE KLY 11/02/24 11/03/24 History transdermal patch estradiol 0.5 mg tablet 0.5 mg PO DAILY 11/02/2412/18 History Held on 11/02/24. Instructions: Patient no longer taking progesterone micronized 100 mg 100 mg PO QPM 11/02/24 11/03/24 History capsule rosuvastatin 10 mg tablet 10 mg PO DAILY 11/02/2410/25 History Patient hx anesthesia problems: none Family hx anesthesia problems: none Results Review: All pre-operative results and documents have been reviewed as part of the pre- operative evaluation. [facility] Past Medical History Medical History Elevated cholesterol Social History Social History Smoking status: Never smoker Second hand tobacco smoke exposure: Yes (as a child.) Alcohol intake: current Drinks per week: 1 Substance use: never Substance use type: does not use Living arrangements: with family Spiritual care concerns: No Anes - Eval Final PreProcedure Day of Procedure 11/08/24 09:55 Patient weight: normal Heart: regular rate and rhythm Lungs: clear to auscultation Airway: Mallampati scale class II Neurological: alert and oriented Last oral intake: >/= 8 hours ASA classification: II Emergent: no Anesthetic plan: proceed Anesthesia type and monitoring: general GIVS and standard monitoring Results Review: All pre-operative results and documents have been reviewed as part of the pre- operative evaluation. Informed Consent: The patient's anesthetic plan and its attendant risks and benefits were discussed with the patient/family/POA. Questions were solicited and answers provided to the satisfaction of the patient/family/POA.
--- NOTE | 2024-11-08 11:14 | S_PTH ---
PATIENT: Geena Woods LOC: [facility] U#:[id number] AGE/SX: 64/F ROOM: RE11/08/[address]: Elza Samaniego MD : 1960 BED: DIS: 11/08/2024 SPEC #: [id number] RECD: 11/08/24 11:42 STATUS: ALBERT RE #: [id number] DANIELA: 11/08/24 11:[address]: Elza Samaniego DEPT: [facility] Surgical RECD BY: Theo Valadez ENTERED: 11/08/24 11:42 SP TYPE: Surgical OTHR DR: Ling Davidson, DO Tissues: A - Endometrial Curettings Procedures: Hematoxylin and Eosin Stain Gross and Microscopic Level 4
--- NOTE | 2024-11-08 11:16 | P.OP_ITS ---
Procedure Note - Detailed Date of Procedure 11/08/24 Pre-op Diagnosis post menopausal bleeding Post-op Diagnosis Same Procedure Performed D&C hysteroscopy Surgeon Elza Samaniego MD Anesthesia MAC Findings Uterus sounds to 7cm and appears atrophic Description of Procedure The patient is taken to the operating room and placed under anesthesia in the dorsal lithotomy position. She was prepped and draped in the usual sterile fashion. [place] speculum was placed in the vagina and the cervix grasped on the anterior lip with a tenaculum. The uterus is sounded to 7cm. The diagnostic hysteroscope was placed and with the atrophic appearance and no lesions noted it was removed. The sharp curette was used to curette the endometrium until a good uterine cry was noted in all areas. All instruments were then removed. Sponge, needle, and instrument counts are correct per the OR staff. The patient was awakened from anesthesia and taken to recovery in stable condition. Estimated Blood Loss 5 Drains No Packing No Pathology Yes (Endometrial curettings) Complications No immediate complications Condition Stable Disposition PACU
[2024-11-08 11:19] VITALS: BP 124/60; PULSE 65; RESP 16; O2SAT 97
[2024-11-08] MEDS: LACTATED RINGERS 1,000 ML 30 ML IV CONT (11:19)
[2024-11-08 11:45] VITALS: BP 117/62; PULSE 57
[2024-11-08 12:08] VITALS: BP 109/62; PULSE 54
== END 2024-11-08 12:15 | disposition home or self-care (01) ==
PROVIDERS: PCP Family Medicine; Visit Provider Obstetrics & Gynecology Gynecology
PROC: 0U5B8ZZ Destruction of Endometrium, Via Natural or Artificial Opening Endoscopic (ICD-10-PCS; CPT 58563; principal; 2024-11-08 11:00)
DX: N85.8 Other specified noninflammatory disorders of uterus (principal); E78.00 Pure hypercholesterolemia, unspecified
CPT/HCPCS: 58558; 88305; A9270; J1100; J1885; J2003; J2250; J2405; J2704; J7120